=== PATIENT | female | born 1970 | race Caucasian/White ===

== ENCOUNTER 2017-11-06 15:50 | Emergency (ER) | payer MEDICAID, OTHER ==
[~2017-11-06] VITALS: Ht 165.1 cm; Wt 60.0 kg
[2017-11-06 15:57] VITALS: BP 121/80
== END 2017-11-06 17:26 | disposition home or self-care (01) ==
LOC: ED 16:35
DX: Z00.00 Encounter for general adult medical examination without abnormal findings (principal); F17.210 Nicotine dependence, cigarettes, uncomplicated
CPT/HCPCS: 99283